=== PATIENT | male | born 2000 | race Caucasian/White ===

== ENCOUNTER 2019-07-22 00:02 | Emergency (ER) | payer OTHER ==
[~2019-07-22] VITALS: Ht 195.6 cm; Wt 90.7 kg
== END 2019-07-22 02:53 | disposition home or self-care (01) ==
LOC: ED 00:02
DX: S30.22XA Contusion of scrotum and testes, initial encounter (principal); F17.200 Nicotine dependence, unspecified, uncomplicated; X58.XXXA Exposure to other specified factors, initial encounter
CPT/HCPCS: 76870; 81001; 99284-25